=== PATIENT | female | born 1990 | race Caucasian/White ===

== ENCOUNTER → 2017-03-29 | Outpatient (CLI) | payer SELFPAY | END | disposition home or self-care (01) | LOC: LAB 16:19 | PROVIDERS: ATTEND Nurse Practitioner Women's Health | DX: R30.9 Painful micturition, unspecified (principal) | CPT/HCPCS: 87077; 87086; 87186 ==

== ENCOUNTER → 2017-04-10 | Outpatient (CLI) | payer SELFPAY | END | disposition home or self-care (01) | LOC: LAB 10:38 | PROVIDERS: ATTEND Nurse Practitioner Women's Health | DX: R30.0 Dysuria (principal); Z87.440 Personal history of urinary (tract) infections | CPT/HCPCS: 87086 ==

== ENCOUNTER → 2017-04-27 | Outpatient (CLI) | payer OTHER ==
--- NOTE | 2017-04-27 09:50 | DIREP ---
PROCEDURE:COMPLETE ABDOMINAL ULTRASOUND COMPARISON:None. INDICATIONS:ABD PAIN FINDINGS: PANCREAS:Imaged pancreas is unremarkable. LIVER:Normal hepatic parenchymal architecture. Appropriate directional flow within the main portal vein. GALLBLADDER:No cholelithiasis, gallbladder wall thickening or pericholecystic fluid collections. Common bile duct measures up to 4 mm and is within normal limits. RIGHT KIDNEY:The right kidney measures approximately 10.7 x 5.0 x 5.4 cm. No hydronephrosis. LEFT KIDNEY:The left kidney measures approximately 10.4 x 4.5 x 5.8 cm. No hydronephrosis. SPLEEN:The spleen is not enlarged measuring up to approximately 10.7 cm in greatest dimension. AORTA:No aneurysmal dilatation of the imaged aorta. INVERIOR VENA CAVA:Imaged IVC is unremarkable. OTHER:Negative. No ascites is identified. CONCLUSION: 1. Unremarkable abdominal ultrasound as above. Dictated by: Tex Espinal M.D. On 04/27/2017 at 09:57 AM
== END | disposition home or self-care (01) ==
LOC: RAD 08:33
PROVIDERS: ATTEND Nurse Practitioner Women's Health
DX: R10.9 Unspecified abdominal pain (principal)
CPT/HCPCS: 76700